=== PATIENT | female | born 1945 | race Caucasian/White ===

== ENCOUNTER 2022-11-18 10:18 | Inpatient (IN) | payer OTHER ==
[~2022-11-18] VITALS: Ht 162.6 cm; Wt 105.8 kg
[~2022-11-18 10:18] MED LIST: CEPH500 PO
[2022-11-18 12:09] LABS: BASOPHILS ABSOLUTE AUTO 0.06 K/mm3 (0.00-0.23); BASOPHILS PERCENT AUTO 0 % (0-2); EOSINOPHILS ABSOLUTE AUTO 0.19 K/mm3 (0.00-0.68); EOSINOPHILS PERCENT AUTO 1 % (0-6); Hematocrit 40.7 % (33.0-51.0); Hemoglobin 13.4 g/dL (11.5-16.0); IMMATURE GRAN ABSOLUTE AUTO 0.12 K/mm3 (0.00-0.10); IMMATURE GRAN PERCENT AUTO 1 % (0-1); LYMPHOCYTES ABSOLUTE AUTO 3.41 K/mm3 (0.84-5.20); LYMPHOCYTES PERCENT AUTO 20 % (21-46); MONOCYTES ABSOLUTE AUTO 0.96 K/mm3 (0.16-1.47); MONOCYTES PERCENT AUTO 6 % (4-13); Mean Corpuscular HGB 30.2 pg (26.0-34.0); Mean Corpuscular HGB Conc 32.9 g/dL (31.5-36.5); Mean Corpuscular Volume 92 fL (80-100); Mean Platelet Volume 10.7 fL (9.1-12.4); NEUTROPHILS ABSOLUTE AUTO 12.05 K/mm3 (1.96-9.15); NEUTROPHILS PERCENT AUTO 72 % (41-73); Platelet Count 352 K/mm3 (150-400); RDW Coefficient Variation 13.1 % (11.7-14.2); RDW Standard Deviation 44.5 fL (35.1-46.3); Red Blood Cell Count 4.44 M/mm3 (3.80-5.20); White Blood Cell Count 16.79 K/mm3 (4.00-11.30)
[2022-11-18 12:18] LABS: Albumin, Blood 3.1 g/dL (3.4-5.0); Albumin/Globulin Ratio 0.7 (0.8-1.8); Bun/Creatinine Ratio 15.8 (12.0-20.0); C-REACTIVE PROTEIN, EXT RANGE 7.63 mg/dL (0.000-0.300); Calcium, Blood 9.2 mg/dL (8.5-10.1); Creatinine, Blood 1.01 mg/dL (0.40-1.00); Globulin, Blood 4.3 g/dL (2.2-4.0); Total Protein, Blood 7.4 g/dL (6.4-8.2)
[2022-11-18 14:04] LABS: Source, Urine Straight Cath
[2022-11-18 14:11] LABS: Appearance, Urine Cloudy (Clear); Bilirubin, Urine Neg (Neg); Blood, Urine 5+ (Neg); Color, Urine Yellow (P-Yellow); Glucose Qualitative, Urine Neg (Neg); Ketones, Urine Neg (Neg); Leukocyte Esterase, Urine 3+ (Neg); Nitrite, Urine Neg (Neg); Protein, Urine 2+ (Neg); Specific Gravity, Urine 1.015 (1.003-1.022); Urobilinogen, Urine NORM (Normal)
[2022-11-18 14:21] LABS: White Blood Cells, Urine TNTC /hpf (0-5)
[2022-11-18 14:22] LABS: Bacteria Many /hpf; Red Blood Cells, Urine 25-50 /hpf (0-2); Squamous Epithelial Cells Rare /hpf (Few)
[2022-11-18 18:39] VITALS: BP 153/88
--- NOTE | 2022-11-18 19:26 | NUR ---
pt arrived at 1830, with her Tamir at bedside. She was transferred from [facility] to medical floor bed with sliding sheet and assistance of three staff. Room air. Lungs are clear, but diminished. Pt is [place] and intermittently confused. Tamir states that his for the past week was ambulating with a walker from the bed to the bathroom, and that was the limit of her activity. The past two days she has not been able to get out of bed due to Right ankle pain. Her right ankle is swollen, red, and hot to the touch. Pt is apprehensive of care, and fearful of falling. Incontinent of urine, this RN placed pt in attends. Yeast reddened angry area under bilat breast folds, pt states it was bothering her at home. Medical hx includees HTN, depression, HLD, diabetes. ADA diet. CBG AC/HS. Plan: Pending results of CT scan, planning for to aspirate the right ankle tomorrow. Pt will be treated with antibiotics for UTI/sepsis. Pt educated on fall prevention methods, encouraged to use call light and not get out of bed. Pt verbalized understanding.
[2022-11-18] MEDS ORDERED: Aspir 8181 MG PO (21:33)
[2022-11-18] MEDS ORDERED: MIRT15ST MM (21:34)
[2022-11-18] MEDS ORDERED: HYDCHL25 PO (21:34)
[2022-11-18] MEDS ORDERED: NABU500 PO (21:35)
[2022-11-18] MEDS ORDERED: LOSARTAN POTASS50 M1 PO (21:35)
[2022-11-18] MEDS ORDERED: DULO30 PO (21:36)
[2022-11-18] MEDS ORDERED: ATOR40TA PO (21:37)
--- NOTE | 2022-11-19 04:27 | NUR ---
SHIFT SUMMARY; NO ACUTE CHANGES OVERNIGHT. THE PT IS AXO X3 AND ON BEDREST. THE PT HAS BEEN SLEEPING IN BED FOR THE DURATION OF THE NIGHT. THE PT DENIES ANY PAIN, OTHER THAN PAIN TO THE TOUCH AT THE R ANKLE. THE PT OTHERWISE DENIES ANY CHEST PAIN/PRESSURE, SOB OR N/V. CURRENTLY THE PT IS SLEEPING IN BED WITH THE BED IN THE LOWEST POSITION AND THE CALL LIGHT AT BEDSIDE. NS IS RUNNING AT 100MLS/HR. FIRE SAFETY MAINTAINED T/O THE NIGHT.
[2022-11-19 05:21] VITALS: BP 185/83
[2022-11-19 06:31] VITALS: BP 170/80
[2022-11-19 08:19] VITALS: BP 185/79
[2022-11-19 08:47] LABS: Hematocrit 38.2 % (33.0-51.0); Hemoglobin 12.9 g/dL (11.5-16.0); Mean Corpuscular HGB 30.4 pg (26.0-34.0); Mean Corpuscular HGB Conc 33.8 g/dL (31.5-36.5); Mean Corpuscular Volume 90 fL (80-100); Mean Platelet Volume 10.7 fL (9.1-12.4); Platelet Count 282 K/mm3 (150-400); RDW Coefficient Variation 13.1 % (11.7-14.2); RDW Standard Deviation 43.1 fL (35.1-46.3); Red Blood Cell Count 4.24 M/mm3 (3.80-5.20); White Blood Cell Count 13.96 K/mm3 (4.00-11.30)
[2022-11-19 09:03] LABS: Bun/Creatinine Ratio 19.3 (12.0-20.0); Calcium, Blood 8.6 mg/dL (8.5-10.1); Creatinine, Blood 0.99 mg/dL (0.40-1.00); Potassium, Blood 4.3 mmol/L (3.5-5.5)
[2022-11-19] MEDS ORDERED: THERA-D2000 UNIT PO (11:20)
[2022-11-19] MEDS ORDERED: DILT180 PO (11:21)
[2022-11-19] MEDS ORDERED: DICLOFENAC SOD100 G1 TOP (11:21)
[2022-11-19] MEDS ORDERED: FAMO20 PO (11:22)
[2022-11-19] MEDS ORDERED: METO100 PO (11:23)
[2022-11-19] MEDS ORDERED: GLUCOPHAGE1000 M1 PO (11:23)
[2022-11-19] MEDS ORDERED: TRULICITY1.5 MG/0.1 SC (11:24)
[2022-11-19] MEDS ORDERED: BICARSIM FORTE125 MG PO (11:26)
[2022-11-19 16:01] VITALS: BP 167/77
--- NOTE | 2022-11-19 17:57 | NUR ---
SHIFT SUMMARY: NO ACUTE EVENTS. C/O PAIN IN R ANKLE, MOSTLY WITH MOVEMENT; MEDICATED PER EMAR. STARTED ON COLCHICINE FOR GOUT. CBG'S > 300, DR. LAY AWARE, GLARGINE INSULIN ORDERED. PUREWICK IN PLACE FOR URINE. RASH NOTED IN SKIN FOLDS. WORKED WITH PHYSICAL THERAPY, GOT UP BRIEFLY WITH FWW. HOME MEDICATIONS ENTERED, ARE NOW COMPLETE.
[2022-11-19 20:08] VITALS: BP 153/65
--- NOTE | 2022-11-20 03:55 | NUR ---
SHIFT SUMMARY. SHIFT HAS BEEN MOSTLY UNREMARKABLE. PT HAS BEEN AOX4 THROUGHOUT SHIFT. SLEEPING THROUGH MOST OF SHIFT AFTER 2100 MED PASS AND ASSESSMENT. PUREWICK WAS REMOVED EARLY IN SHIFT DUE TO NOT FUNCTIONING PROPERLY. EARLY THIS MORNING, PT AWOKE VERY AGITATED ABOUT BEING INCONTINENT. REPORTED THAT STAFF NEVER TOLD HER PUREWICK WAS NO LONGER IN PLACE SO SHE WAS COMFORTABLE REMAINING INCONTINENT. ALSO COMPLAINING PRIMARILY ABOUT BEING WOKEN UP FOR VITALS DESPITE BEING ASLEEP AT THE TIME. EDUCATED ON NEED FOR VITALS GIVEN ADMISSION STATUS. PT WAS SCREAMING AT STAFF AND BRIEFLY BECAME PHYSICAL WITH THIS NURSE. WAS ABLE TO PERFORM BRIEF CHANGE BEFORE REMINDING PT THAT PUREWICK IS NOT IN PLACE SO SHE WILL NEED TO CALL WHEN SHE FEELS URGE TO VOID. PT WAS ON PHONE WITH FAMILY AT TIME. OTHERWISE SHIFT HAS NOT BEEN NOTEWORTHY. NO PAIN REPORTED. BEDREST THROUGHOUT SHIFT. HAS REMAINED AOX4. BED LOCKED IN LOWEST POSITION. CALL LIGHT LEFT WITHIN REACH.
[2022-11-20 07:38] VITALS: BP 150/55
--- NOTE | 2022-11-20 09:00 | NUR ---
pt working with therapy at this time, sitting on the side of the bed, awake a/ox3, complaining about her night, spouce in room, lungs are clear dim t/o, resp even and unlabored, no cough noted, on r/a, hrr, no edema noted, ppp+1, cap refill <3sec, vs stable, afebrile, piv site to rac, site clear and patent, btx4, abd flat soft nontender, voids without diff, skin c/w/d, a bit of a rash under breast, kaden hansen, call light in reach.
[2022-11-20] MEDS ORDERED: DILT180 PO (11:42)
[2022-11-20] MEDS ORDERED: BICARSIM FORTE125 MG PO (11:46)
[2022-11-20] MEDS ORDERED: Vitamin D1000 UNI1 PO (11:48)
[2022-11-20] MEDS ORDERED: COLCRYS0.6 M1 PO (11:51)
--- NOTE | 2022-11-20 12:30 | NUR ---
Pt had another episode of anger and calling charge nurse nasty names when she went in to discharge her, spouce was not in room. she did not treat this nurse badly, but spouce was in room each time this nurse was in there. went over instructions with spouce outside of room, she then told the c java developer she had to carry her to the bathroom. she has been ambulating to the bathroom. spouce took her, iv was removed intact, but when she was getting ready to leave there was no dressing on it, charge placed a dressing, she refused to eat lunch. left via wheelchair with spouce in attendence, new mediation faxed to [facility]. pt has her belongings.
== END 2022-11-20 15:41 | disposition home health service (06) | DRG 871 ==
LOC: ER 10:18 → MEDS 15:40 → ENPENDDIS 11-20 11:43 → MEDS 11-20 15:41
PROVIDERS: Student in an Organized Health Care Education/Training Program; ADMIT Internal Medicine
DX: A41.9 Sepsis, unspecified organism (principal); G92.8 Other toxic encephalopathy; N39.0 Urinary tract infection, site not specified; M13.871 Other specified arthritis, right ankle and foot; I10 Essential (primary) hypertension; E11.9 Type 2 diabetes mellitus without complications; E78.5 Hyperlipidemia, unspecified; F32.A Depression, unspecified; R54 Age-related physical debility; H91.90 Unspecified hearing loss, unspecified ear; M10.9 Gout, unspecified
CPT/HCPCS: 36415; 71046; 73610; 73701; 80048; 80053; 81001; 82607; 82746; 82947; 83605; 84550; 85025; 85027; 85651; 86140; 87086; 96361; 96374; 97110; 97161; 97530; 99284-25; A9270; J0360; J0696; J1650; J1815; J2930; J7030; J7512; P9612; Q9967